=== PATIENT | female | born 1935 | race Caucasian/White ===

== ENCOUNTER 2018-06-12 11:31 | Emergency (ER) | payer MEDICARE, OTHER ==
[~2018-06-12] VITALS: Ht 165.1 cm; Wt 63.5 kg
[~2018-06-12 11:31] MED LIST: CELE200 PO; Percocet 5-3251 EACH PO; RIVASTIGMINE6 MG PO; ZESTRIL40 MG PO; [UNRECOGNIZED DRUG - CODE]; [UNRECOGNIZED DRUG - CODE]; [UNRECOGNIZED DRUG - CODE] PO
[2018-06-12 13:00] LABS: Calcium, Ionized (POC) 1.18 mmol/L (1.10-1.46); Chloride (POC) 106 mmol/L (98-108); Creatinine (POC) 0.8 mg/dL (0.6-1.0); Glucose (ISTAT POC) 84 mg/dL (70-99); Hemoglobin (POC) 11.9 g/dL (12.0-16.0); Sodium (POC) 143 mmol/L (135-148); Total CO2 (POC) 23 mmol/L (21-32)
[2018-06-12] MEDS ORDERED: LORA.5 PO (14:11)
[2018-06-12] MEDS ORDERED: EXELON1 EACH TD (14:12)
[2018-06-12] MEDS ORDERED: MEDR2.5 PO (14:13)
[2018-06-12] MEDS ORDERED: NAMENDA XR28 MG PO (14:13)
[2018-06-12] MEDS ORDERED: Inderal80 MG PO (14:14)
[2018-06-12] MEDS ORDERED: CONEST.625 PO (14:14)
== END 2018-06-12 15:05 | disposition home or self-care (01) ==
LOC: ER 11:31
PROVIDERS: Emergency Medicine
DX: S51.012A Laceration without foreign body of left elbow, initial encounter (principal); S00.12XA Contusion of left eyelid and periocular area, initial encounter; W10.9XXA Fall (on) (from) unspecified stairs and steps, initial encounter; Z79.899 Other long term (current) drug therapy
CPT/HCPCS: 70450; 80047; 85014; 90471; 90714; 93005; 93010; 99285-25

== ENCOUNTER 2019-06-05 12:21 | Emergency (ER) | payer MEDICARE, OTHER ==
[~2019-06-05] VITALS: Ht 165.1 cm; Wt 54.4 kg
[~2019-06-05 12:21] MED LIST changes: +CONEST.625 PO; +EXELON1 EACH TD; +Inderal80 MG PO; +LORA.5 PO; +MEDR2.5 PO; +NAMENDA XR28 MG PO
[2019-06-05 13:10] LABS: BASOPHILS ABSOLUTE AUTO 0.11 K/mm3 (0.00-0.23); BASOPHILS PERCENT AUTO 1 % (0-2); EOSINOPHILS ABSOLUTE AUTO 0.13 K/mm3 (0.00-0.68); EOSINOPHILS PERCENT AUTO 2 % (0-6); Hemoglobin 12.8 g/dL (11.5-16.0); IMMATURE GRAN ABSOLUTE AUTO 0.02 K/mm3 (0.00-0.10); IMMATURE GRAN PERCENT AUTO 0 % (0-1); LYMPHOCYTES ABSOLUTE AUTO 1.41 K/mm3 (0.84-5.20); LYMPHOCYTES PERCENT AUTO 16 % (21-46); MONOCYTES ABSOLUTE AUTO 0.82 K/mm3 (0.16-1.47); MONOCYTES PERCENT AUTO 9 % (4-13); Mean Corpuscular HGB 31.4 pg (26.0-34.0); Mean Corpuscular Volume 98 fL (80-100); Mean Platelet Volume 10.1 fL (9.1-12.4); NEUTROPHILS ABSOLUTE AUTO 6.46 K/mm3 (1.96-9.15); NEUTROPHILS PERCENT AUTO 72 % (41-73); Platelet Count 239 K/mm3 (150-400); RDW Coefficient Variation 12.6 % (11.7-14.2); RDW Standard Deviation 45.7 fL (35.1-46.3); Red Blood Cell Count 4.07 M/mm3 (3.80-5.20); White Blood Cell Count 8.95 K/mm3 (4.00-11.30)
[2019-06-05 13:25] LABS: Source, Urine Clean Catch
[2019-06-05 13:28] LABS: Bilirubin, Urine Neg (Neg); Blood, Urine Neg (Neg); Glucose Qualitative, Urine Neg (Neg); Ketones, Urine Neg (Neg); Leukocyte Esterase, Urine Neg (Neg); Nitrite, Urine Neg (Neg); Protein, Urine 1+ (Neg); Urobilinogen, Urine NORM (Normal)
[2019-06-05 13:35] LABS: Appearance, Urine Clear (Clear); Color, Urine Pale Yellow (P-Yellow)
[2019-06-05 14:13] LABS: Troponin I <0.015 ng/mL (0.000-0.040)
[2019-06-05 14:20] LABS: Alanine Aminotransfer (ALT/SGP 23 U/L (12-78); Albumin, Blood 3.5 g/dL (3.4-5.0); Albumin/Globulin Ratio 0.8 (0.8-1.8); Alk Phos 116 U/L (50-136); Anion Gap 8 mmol/L (6-16); Aspartate Aminotrans (AST/SGOT 25 U/L (12-37); Bilirubin, Total 0.5 mg/dL (0.1-1.0); Blood Urea Nitrogen 14 mg/dL (8-24); Bun/Creatinine Ratio 20.3 (12.0-20.0); CO2, Blood 28 mmol/L (21-32); Calcium, Blood 9.6 mg/dL (8.5-10.1); Chloride, Blood 108 mmol/L (98-108); Creatinine, Blood 0.69 mg/dL (0.40-1.00); Globulin, Blood 4.3 g/dL (2.2-4.0); Glomerular Filtration Rate >60 (60-); Glucose, Blood 116 mg/dL (70-99); Potassium, Blood 3.6 mmol/L (3.5-5.5); Sodium, Blood 144 mmol/L (136-145); Total Protein, Blood 7.8 g/dL (6.4-8.2)
[2019-06-05] MEDS ORDERED: LORA1 PO (14:26)
== END 2019-06-05 16:04 | disposition home or self-care (01) ==
LOC: ER 12:21
PROVIDERS: Physician Assistant
DX: S01.01XA Laceration without foreign body of scalp, initial encounter (principal); W01.198A Fall on same level from slipping, tripping and stumbling with subsequent striking against other object, initial encounter; Z79.899 Other long term (current) drug therapy; I10 Essential (primary) hypertension; G30.9 Alzheimer's disease, unspecified
CPT/HCPCS: 36415; 70450; 80053; 84484; 85025; 93005; 93010; 96374; 96375; 99284-25; J0360; J2060

== ENCOUNTER 2019-09-27 12:15 | Inpatient (IN) | payer MEDICARE, OTHER ==
[~2019-09-27] VITALS: Ht 165.1 cm; Wt 58.5 kg
[~2019-09-27 12:15] MED LIST changes: +LORA1 PO
[2019-09-27] MEDS ORDERED: CELECOXIB200 MG PO (12:25)
[2019-09-27] MEDS ORDERED: Sulfamethoxazo1 EAC4 PO (12:25)
[2019-09-27 13:41] LABS: BASOPHILS ABSOLUTE AUTO 0.01 K/mm3 (0.00-0.23); BASOPHILS PERCENT AUTO 0 % (0-2); EOSINOPHILS PERCENT AUTO 1 % (0-6); Hematocrit 36.6 % (33.0-51.0); Hemoglobin 11.8 g/dL (11.5-16.0); IMMATURE GRAN ABSOLUTE AUTO 0.11 K/mm3 (0.00-0.10); IMMATURE GRAN PERCENT AUTO 1 % (0-1); LYMPHOCYTES ABSOLUTE AUTO 0.06 K/mm3 (0.84-5.20); LYMPHOCYTES PERCENT AUTO 0 % (21-46); MONOCYTES ABSOLUTE AUTO 0.19 K/mm3 (0.16-1.47); MONOCYTES PERCENT AUTO 1 % (4-13); Mean Corpuscular HGB 31.8 pg (26.0-34.0); Mean Corpuscular HGB Conc 32.2 g/dL (31.5-36.5); Mean Corpuscular Volume 99 fL (80-100); Mean Platelet Volume 10.4 fL (9.1-12.4); NEUTROPHILS ABSOLUTE AUTO 15.39 K/mm3 (1.96-9.15); NEUTROPHILS PERCENT AUTO 97 % (41-73); Platelet Count 184 K/mm3 (150-400); RDW Coefficient Variation 12.9 % (11.7-14.2); RDW Standard Deviation 46.5 fL (35.1-46.3); Red Blood Cell Count 3.71 M/mm3 (3.80-5.20); White Blood Cell Count 15.86 K/mm3 (4.00-11.30)
[2019-09-27 14:02] LABS: Troponin I <0.015 ng/mL (0.000-0.040)
[2019-09-27 14:03] LABS: Alanine Aminotransfer (ALT/SGP 25 U/L (12-78); Albumin/Globulin Ratio 0.8 (0.8-1.8); Alk Phos 108 U/L (50-136); Anion Gap 6 mmol/L (6-16); Aspartate Aminotrans (AST/SGOT 33 U/L (12-37); Bilirubin, Total 0.4 mg/dL (0.1-1.0); Blood Urea Nitrogen 21 mg/dL (8-24); Bun/Creatinine Ratio 21.8 (12.0-20.0); CO2, Blood 28 mmol/L (21-32); Calcium, Blood 9.1 mg/dL (8.5-10.1); Chloride, Blood 107 mmol/L (98-108); Creatinine, Blood 0.96 mg/dL (0.40-1.00); Globulin, Blood 3.9 g/dL (2.2-4.0); Glomerular Filtration Rate 58 (60-); Glucose, Blood 122 mg/dL (70-99); Potassium, Blood 3.8 mmol/L (3.5-5.5); Sodium, Blood 141 mmol/L (136-145); Total Protein, Blood 6.9 g/dL (6.4-8.2)
[2019-09-27 14:07] LABS: Thyroid Stimulating Hormone 0.685 uIU/mL (0.360-4.800)
[2019-09-27 14:42] LABS: Source, Urine Voided
[2019-09-27 14:45] LABS: Blood, Urine 1+ (Neg); Glucose Qualitative, Urine Neg (Neg); Ketones, Urine Neg (Neg); Leukocyte Esterase, Urine 1+ (Neg); Nitrite, Urine Neg (Neg); Protein, Urine 1+ (Neg); Specific Gravity, Urine 1.015 (1.003-1.022); Urobilinogen, Urine 1+ (Normal)
[2019-09-27 15:00] LABS: Appearance, Urine Clear (Clear); Bilirubin, Urine 1+ (Neg); Color, Urine Yellow (P-Yellow)
[2019-09-27 15:01] LABS: Bacteria Mod /hpf; Mucus Light (0-Heavy); Squamous Epithelial Cells Few /hpf (Few)
[2019-09-27] MEDS ORDERED: PROPRANOLOL HCL80 MG PO (15:05)
--- NOTE | 2019-09-27 15:40 | NUR ---
RECIEVED REPORT FROM LUKASZ GARRIDO RN AT 1540. PATIENT TO BE TRANSFERED TO ROOM 349.
[2019-09-27] MEDS ORDERED: LORA.5 PO (16:18)
[2019-09-27] MEDS ORDERED: TOCO1000 PO (16:19)
--- NOTE | 2019-09-27 18:13 | NUR ---
PATIENT ARRIVED TO ROOM 349 AT 1556. ASSESSMENT, H&P AND MED REC COMPLETED WITH ASSISTANCE OF SON AND DAUGHTER IN LAW. PATIENT PULLED OUT IV THAT WAS PLACED IN THE ER. I THEN PLACED ANOTHER AND SHE REMOVED THAT ONE, DESPITE IT BEING WRAPPED WELL WITH COBAN. THIRD IV WAS PLACED AND PATIENT ALSO WAS FOUND TRYING TO REMOVED THAT IV. JOCELYN, SITE WITH CURRENTLY 2 IV SITES, WRAPPED WELL WITH COBAN.
--- NOTE | 2019-09-27 18:35 | NUR ---
SPOKE TO DR MCKEON REGARDING PATIENT PULLNG OUT IV'S, ORDER GIVEN TO PLACE WRIST RESTRAINTS. I CALLED PATIENT'S SON, ANDRADE, RIGHT AFTER TALKING TO DOCTOR MIKE AND INFORMED HIM OF THE SITUATION AND HE ADREED TO COME SIT AT THE PATIENTS BEDSIDE TO WATCH HER FROM PULLING HER IV's.
--- NOTE | 2019-09-28 03:47 | NUR ---
SHIFT SUMMARY PATIENT HAD NO ACUTE CHANGES OBSERVED. FAMILY PRESENT AT SHIFT CHANGE TO HELP MONITOR PATIENT AND KEEP HER FROM PULLING OUT IV'S. FAMILY STAYED A FEW HOURS AND LEFT FOR EVENING. AXOX 1-2 TO SELF AND FAMILY. SLOW TO RESPOND. PIV REMAINS INTACT. LR INFUSING AT 50 mL/HR. FEBRILE WITH TEMP OF 101.3 AND TYLENOL 500 MG GIVEN PER EMAR. TEMP REDUCED TO 98.5. TWO PERSON TRANSFER TO [facility] [place] W/FWW. OTHER VITALS WNL. BED ALARM ACTIVATED FOR CONFUSION. CALL LIGHT IN REACH. BED IN LOWEST POSITION. WILL CONTINUE TO MONITOR UNTIL DAY SHIFT NURSE ASSUMES CARE.
[2019-09-28 04:59] LABS: BASOPHILS ABSOLUTE AUTO 0.04 K/mm3 (0.00-0.23); BASOPHILS PERCENT AUTO 0 % (0-2); EOSINOPHILS ABSOLUTE AUTO 0.15 K/mm3 (0.00-0.68); EOSINOPHILS PERCENT AUTO 2 % (0-6); Hematocrit 36.7 % (33.0-51.0); Hemoglobin 11.8 g/dL (11.5-16.0); IMMATURE GRAN ABSOLUTE AUTO 0.12 K/mm3 (0.00-0.10); IMMATURE GRAN PERCENT AUTO 1 % (0-1); LYMPHOCYTES ABSOLUTE AUTO 0.07 K/mm3 (0.84-5.20); LYMPHOCYTES PERCENT AUTO 1 % (21-46); MONOCYTES ABSOLUTE AUTO 0.08 K/mm3 (0.16-1.47); MONOCYTES PERCENT AUTO 1 % (4-13); Mean Corpuscular HGB 30.9 pg (26.0-34.0); Mean Corpuscular HGB Conc 32.2 g/dL (31.5-36.5); Mean Platelet Volume 9.9 fL (9.1-12.4); NEUTROPHILS ABSOLUTE AUTO 9.75 K/mm3 (1.96-9.15); NEUTROPHILS PERCENT AUTO 95 % (41-73); Platelet Count 145 K/mm3 (150-400); RDW Coefficient Variation 13.2 % (11.7-14.2); RDW Standard Deviation 46.5 fL (35.1-46.3); Red Blood Cell Count 3.82 M/mm3 (3.80-5.20); White Blood Cell Count 10.21 K/mm3 (4.00-11.30)
[2019-09-28 05:11] LABS: Mean Corpuscular Volume 96 fL (80-100)
[2019-09-28 05:24] LABS: Albumin, Blood 2.4 g/dL (3.4-5.0); Calcium, Blood 8.6 mg/dL (8.5-10.1); Creatinine, Blood 1.26 mg/dL (0.40-1.00); Magnesium, Blood 1.9 mg/dL (1.6-2.4); Phosphorus, Blood 3.4 mg/dL (2.5-4.9)
[2019-09-28 05:26] LABS: Albumin/Globulin Ratio 0.7 (0.8-1.8); Bilirubin, Total 0.5 mg/dL (0.1-1.0); Globulin, Blood 3.4 g/dL (2.2-4.0); Total Protein, Blood 5.8 g/dL (6.4-8.2)
--- NOTE | 2019-09-28 16:24 | NUR ---
SHIFT SUMMARY THE PATIENT HAS HAD A GOOD DAY. VITALS HAVE BEEN STABLE. CONFUSED BUT PLEASANT WITH STAFF. DOESN'T REMEMBER HOW TO USE THE CALL LIGHT, HOWEVER CALLS OUT FOR STAFF ASSIST NEEDED. CONTINUES ON IV ABX WITHOUT S/SX OF ADVERSE REACTIONS NOTED OR REPORTED. THE PATIENT IS CURRENTLY RECLINING IN THE BED SIDE RECLINER IN HER ROOM. HER SON IS AT BEDSIDE. WILL CONTINUE TO MONITOR AND PROVIDE CARE NEEDED.
--- NOTE | 2019-09-29 05:19 | NUR ---
SHIFT SUMMARY PT PREFERS TO DC HOME WHEN STABLE FOR DC, CAREGIVER ALREADY IN PLACE FOR 40 HRS/WK. HOWEVER, FAMILY DOES AGREE TO [facility] IF PLACEMENT IS REQUIRED OR MORE HH HOURS THROUGH [facility]. PT WAS CONTINENT OF URINE THIS SHIFT TO [facility] [place]. 1-2 STANDBY ASSIST W/FWW, DEPENDING. VERY WEAK AND UNSTEADY STILL. LR IS INFUSING @ 50 ML/HR ORDERED. MEDS MAY NEED TO BE CRUSHED IN APPLESAUCE THIS PT HAD DIFFICULTY SWALLOWING HER BEDTIME PILLS FOR ME. SHE IS FORGETFUL AND DISORIENTED @ TIMES, HX: ADVANCED ALZHEIMER'S. HX: PULLING IV'S - SO WE'VE WRAPPED THEM IN EFFORT TO PRESERVE THE ACCESS. RA.
[2019-09-29 05:39] LABS: Hematocrit 34.1 % (33.0-51.0); Hemoglobin 11.2 g/dL (11.5-16.0); Mean Corpuscular HGB 31.2 pg (26.0-34.0); Mean Corpuscular HGB Conc 32.8 g/dL (31.5-36.5); Mean Corpuscular Volume 95 fL (80-100); Mean Platelet Volume 10.7 fL (9.1-12.4); Platelet Count 105 K/mm3 (150-400); RDW Coefficient Variation 13.2 % (11.7-14.2); RDW Standard Deviation 45.6 fL (35.1-46.3); Red Blood Cell Count 3.59 M/mm3 (3.80-5.20); White Blood Cell Count 6.45 K/mm3 (4.00-11.30)
[2019-09-29 05:47] LABS: Bun/Creatinine Ratio 26.3 (12.0-20.0); Calcium, Blood 8.4 mg/dL (8.5-10.1); Creatinine, Blood 1.14 mg/dL (0.40-1.00); Potassium, Blood 3.8 mmol/L (3.5-5.5)
[2019-09-29 06:05] LABS: BAND PERCENT MAN 25 % (0-8); BASOPHILS PERCENT MAN 0 % (0-2); EOSINOPHILS ABSOLUTE MAN 0.12 K/mm3 (0.00-0.68); EOSINOPHILS PERCENT MAN 2 % (0-6); LYMPHOCYTES ABSOLUTE MAN 0.19 K/mm3 (0.84-5.20); LYMPHOCYTES PERCENT MAN 3 % (21-46); MONOCYTES PERCENT MAN 0 % (4-13); NEUTROPHILS ABSOLUTE MAN 6.12 K/mm3 (1.96-9.15); SEG NEUTROPHILS PERCENT MAN 70 % (41-73); TOTAL CELLS COUNTED 100
--- NOTE | 2019-09-29 11:28 | NUR ---
DR JUDGE OFFICE NOTIFIED OF CONSULT.
--- NOTE | 2019-09-29 16:53 | NUR ---
SHIFT SUMMARY- PT A/O TO SELF ONLY. 1 ASSIST WITH FWW UP BATHROOM. PT DENIES ANY COMPLAINTS T/O THE DAY. LS CLEAR, ON RA. HRR. 1+ BLE EDEMA. DR QUIGLEY CONSULTED. POST VOID BLADDER SCAN OF 21. PT REPORTS FEELING CONSTIPATED, BOWEL CARE ORDERED. SON IN THROUGH OUT THE DAY TO CHECK ON PT, HE IS REQUESTING HE BE NOTIFIED WHEN THERAPY IS IN TO SEE PT TOMORROW SO HE CAN BE HERE. POSSIBLE DISCHARGE HOME TOMORROW WITH HOME HEALTH. NO OTHER ACUTE CHANGES THIS SHIFT.
--- NOTE | 2019-09-29 23:02 | NUR ---
LR IV FLUID INFUSION DC'D LR IV FLUID INFUSION DC'D @ 2300 HRS ORDERED. 278 ML INFUSED ON PUMP SINCE LAST CLEARED.
--- NOTE | 2019-09-30 04:33 | NUR ---
SHIFT SUMMARY 24 HR URINE PROTEIN COLLECTION HAS BEGUN. DELAYED START DUE TO POLLUTION OF SAMPLE -STOOL IN COLLECTION HAT. PT HAD MULTIPLE BM'S FIRST HALF OF SHIFT. LR IV INFUSION DC'D @ 2300 HRS ORDERED. PT IS A STANDBY W/FWW & GAITBELT TO BATHROOM. SHE DOES FEEL FREQUENT URGES TO URINATE, BUT IS NOT ALWAYS ABLE TO. SHE IS IMPULSIVE AND PLEASANTLY CONFUSED, ATTEMPTS TO GET OUT OF BED HERSELF - THEN CALLS OUT FOR ASSISTANCE WHEN LEGS ARE OVER THE SIDE OF THE BED. FOR THIS REASON I'VE REQUESTED SHE BE PUT ON VIDEO MONITORING. BED ALARM IS ON WELL. I WAS INFORMED BY DAY NURSE THAT 24 HR CAREGIVERS ARE ALREADY IN PLACE AT THE PT'S HOME. IT IS IMPORTANT FOR THIS PT'S SAFETY TO VERIFY THAT INFORMATION BEFORE DC SHE CANNOT BE LEFT ALONE. MEDS SHOULD BE CRUSHED IN PUDDING OR APPLESAUCE SHE POCKETS PILLS IN HER CHEEKS OR SPITS THEM BACK OUT. BLE EDEMA.
[2019-09-30 05:45] LABS: Hematocrit 30.6 % (33.0-51.0); Hemoglobin 9.9 g/dL (11.5-16.0); Mean Corpuscular HGB 30.6 pg (26.0-34.0); Mean Corpuscular HGB Conc 32.4 g/dL (31.5-36.5); Mean Corpuscular Volume 94 fL (80-100); Mean Platelet Volume 10.6 fL (9.1-12.4); Platelet Count 97 K/mm3 (150-400); RDW Coefficient Variation 13.1 % (11.7-14.2); RDW Standard Deviation 45.6 fL (35.1-46.3); Red Blood Cell Count 3.24 M/mm3 (3.80-5.20); White Blood Cell Count 7.25 K/mm3 (4.00-11.30)
--- NOTE | 2019-09-30 05:53 | NUR ---
VERIFIED VIDEO MONITORING CHARGE AND SOFTWARE PROGRAM MANAGER INFORMED OF MY REQUEST FOR VIDEO MONITORING. REQUEST APPROVED. I CALLED AND VERIFIED THAT THIS PT WAS VIDEO MONITORED - FAST FOOD SUPERVISOR ZACH.
[2019-09-30 06:07] LABS: BAND PERCENT MAN 2 % (0-8); BASOPHILS ABSOLUTE MAN 0.07 K/mm3 (0.00-0.23); BASOPHILS PERCENT MAN 1 % (0-2); EOSINOPHILS ABSOLUTE MAN 0.29 K/mm3 (0.00-0.68); EOSINOPHILS PERCENT MAN 4 % (0-6); LYMPHOCYTES ABSOLUTE MAN 0.43 K/mm3 (0.84-5.20); LYMPHOCYTES PERCENT MAN 6 % (21-46); MONOCYTES ABSOLUTE MAN 0.21 K/mm3 (0.16-1.47); MONOCYTES PERCENT MAN 3 % (4-13); NEUTROPHILS ABSOLUTE MAN 6.23 K/mm3 (1.96-9.15); SEG NEUTROPHILS PERCENT MAN 84 % (41-73); TOTAL CELLS COUNTED 100
[2019-09-30 06:18] LABS: Albumin, Blood 2.1 g/dL (3.4-5.0); Anion Gap 6 mmol/L (6-16); Blood Urea Nitrogen 29 mg/dL (8-24); Bun/Creatinine Ratio 32.6 (12.0-20.0); CO2, Blood 25 mmol/L (21-32); Calcium, Blood 8.6 mg/dL (8.5-10.1); Chloride, Blood 112 mmol/L (98-108); Creatinine, Blood 0.89 mg/dL (0.40-1.00); Glomerular Filtration Rate >60 (60-); Glucose, Blood 87 mg/dL (70-99); Phosphorus, Blood 2.2 mg/dL (2.5-4.9); Potassium, Blood 3.6 mmol/L (3.5-5.5); Sodium, Blood 143 mmol/L (136-145)
--- NOTE | 2019-09-30 13:01 | NUR ---
OCCUPATIONAL THERAPY IN TO WORK WITH PT, SON AT BEDSIDE. DR MCKEON TO COME SHORTLY TO TALK WITH SON. [facility].
--- NOTE | 2019-09-30 15:25 | NUR ---
Patient is sitting on a chair and alert. Patient is kind and thoughtful. Patient tells me about her family, her love of traveling and about her belief in God. Patient states that she couldn't think of being any better than how she is right now and hopes that others in the hospital can feel the same way. I listen empathically, reinforce helpful attitudes and practices, and provide companionship and prayer. Patient responds well and voices appreciation for the visit.
--- NOTE | 2019-09-30 16:52 | NUR ---
SHIFT SUMMARY- PT A/O TO SELF AND FAMILY. CONFUSED BUT EASILY REDIRECTED. PT DENIES ANY COMPLAINTS T/O THE DAY. LS CLEAR, ON RA. HRR. 1+ BLE EDEMA WITH DARA HOSE IN PLACE. 1 ASSIST UP TO BATHROOM WITH FWW. 24 URINE IN PROCESS. PT WITH POOR ORAL INTAKE. NO OTHER ACUTE CHANGES THIS SHIFT. POSS D/C HOME WITH HH VS SNF.
--- NOTE | 2019-09-30 18:59 | NUR ---
CONFIRMED VIDEO MONITORING CONFIRMED WITH [facility] THAT THIS PT IS BEING MONITORED VIA [facility].
--- NOTE | 2019-10-01 04:06 | NUR ---
SHIFT SUMMARY VIDEO MONITORING IN PLACE. PT DOES CONTINUE TO TRY TO GET OUT OF BED ON HER OWN AND THEN CALLS OUT. BED ALARM IS ON. 24 HOUR URINE PROTEIN IS COLLECTED AND SUBMITTED TO LAB. BASELINE TREMORS AND ADVANCED ALZHEIMERS. RA. PT DENIES DISCOMFORT. PT EXPERIENCES FREQUENT URGES TO URINATE W/ SMALL AMOUNT OF OUTPUT. I WAS GIVEN IN REPORT THAT SHE DOES NOT INGEST A SIGNIFICANT AMOUNT OF FOOD OR FLUIDS. PLAN IS FOR PT TO GO HOME W/HOME CAREGIVERS.
[2019-10-01 04:15] LABS: Protein, Urine Quantitative 67.3 mg/dL (0.0-11.9)
[2019-10-01 05:25] LABS: BASOPHILS ABSOLUTE AUTO 0.03 K/mm3 (0.00-0.23); BASOPHILS PERCENT AUTO 0 % (0-2); EOSINOPHILS ABSOLUTE AUTO 0.28 K/mm3 (0.00-0.68); EOSINOPHILS PERCENT AUTO 4 % (0-6); Hematocrit 30.8 % (33.0-51.0); Hemoglobin 9.9 g/dL (11.5-16.0); IMMATURE GRAN ABSOLUTE AUTO 0.04 K/mm3 (0.00-0.10); IMMATURE GRAN PERCENT AUTO 1 % (0-1); LYMPHOCYTES PERCENT AUTO 15 % (21-46); MONOCYTES ABSOLUTE AUTO 0.81 K/mm3 (0.16-1.47); MONOCYTES PERCENT AUTO 12 % (4-13); Mean Corpuscular HGB 30.8 pg (26.0-34.0); Mean Corpuscular HGB Conc 32.1 g/dL (31.5-36.5); Mean Corpuscular Volume 96 fL (80-100); Mean Platelet Volume 10.9 fL (9.1-12.4); NEUTROPHILS ABSOLUTE AUTO 4.76 K/mm3 (1.96-9.15); NEUTROPHILS PERCENT AUTO 69 % (41-73); Platelet Count 95 K/mm3 (150-400); RDW Coefficient Variation 13.2 % (11.7-14.2); RDW Standard Deviation 47.1 fL (35.1-46.3); Red Blood Cell Count 3.21 M/mm3 (3.80-5.20); White Blood Cell Count 6.92 K/mm3 (4.00-11.30)
[2019-10-01 05:53] LABS: Magnesium, Blood 1.9 mg/dL (1.6-2.4)
[2019-10-01 05:54] LABS: Percent Saturation 18.9 % (15.0-50.0)
[2019-10-01 06:21] LABS: Anion Gap 5 mmol/L (6-16); Blood Urea Nitrogen 25 mg/dL (8-24); Bun/Creatinine Ratio 34.8 (12.0-20.0); CO2, Blood 28 mmol/L (21-32); Calcium, Blood 8.6 mg/dL (8.5-10.1); Chloride, Blood 111 mmol/L (98-108); Creatinine, Blood 0.72 mg/dL (0.40-1.00); Glomerular Filtration Rate >60 (60-); Glucose, Blood 86 mg/dL (70-99); Potassium, Blood 3.6 mmol/L (3.5-5.5); Sodium, Blood 144 mmol/L (136-145)
[2019-10-01 14:07] LABS: HEPARIN INDUCED PLATELET AB 0.134 OD (0.000-0.400)
[2019-10-01] MEDS ORDERED: Prinivil10 MG PO (15:03)
[2019-10-01] MEDS ORDERED: AMLO10 PO (15:04)
--- NOTE | 2019-10-01 17:56 | NUR ---
1630 PATIENT TO DISCHARGE HOME WITH FAMILY ON . THIS NURSE WENT OVER DISCHARGE PAPERS WITH FAMILY AND EDUCATED THEM REGARDING MEDS . FAMILY ENCOURAGED TO FOLLOW UP WITH PCP DOCTOR (SCAR) WHO ARE TO CALL FAMILY ON FRIDAY TO SET UP APPOINTMENT. MEDS FAXED TO [facility] PER FAMILY REQUEST. IVS REMOVED , NO SS OF INFECTION NOTED. PATIENT TAKEN BY WHEELCHAIR TRANSPORT HOME.
== END 2019-10-01 16:50 | disposition home health service (06) | DRG 603 ==
LOC: ER 12:15 → MEDS 12:16 → ER 14:55 → MEDS 14:55 → ENPENDDIS 10-01 14:55 → MEDS 10-01 16:50
PROVIDERS: Emergency Medicine; Internal Medicine Nephrology; ADMIT Hospitalist
DX: L03.031 Cellulitis of right toe (principal); N17.9 Acute kidney failure, unspecified; M50.30 Other cervical disc degeneration, unspecified cervical region; Z87.891 Personal history of nicotine dependence; G30.9 Alzheimer's disease, unspecified; W18.30XA Fall on same level, unspecified, initial encounter; Y92.9 Unspecified place or not applicable; I10 Essential (primary) hypertension; D69.6 Thrombocytopenia, unspecified; D63.1 Anemia in chronic kidney disease; I12.9 Hypertensive chronic kidney disease with stage 1 through stage 4 chronic kidney disease, or unspecified chronic kidney disease; E83.39 Other disorders of phosphorus metabolism; E86.1 Hypovolemia
CPT/HCPCS: 36415; 70450; 71045; 76770; 80048; 80053; 80069; 81001; 81050; 82607; 82728; 82746; 83540; 83550; 83735; 83880; 84100; 84156; 84443; 84484; 85014; 85018; 85025; 86022; 87086; 93005; 93010; 96361; 96365; 96366; 96372; 97110; 97116; 97162; 97165; 97530; 97535; 99285-25; G0378; J0696; J1650; J7050; J7060; J7120; P9612

== ENCOUNTER 2019-12-01 00:18 | Day surgery (SDC) | payer MEDICARE, OTHER ==
[~2019-12-01 00:18] MED LIST changes: +AMLO10 PO; +CELECOXIB200 MG PO; +PROPRANOLOL HCL80 MG PO; +Prinivil10 MG PO; +Sulfamethoxazo1 EAC4 PO; +TOCO1000 PO
== END 2019-12-01 22:57 | disposition home or self-care (01) ==
LOC: WOUND 00:18
DX: E11.621 Type 2 diabetes mellitus with foot ulcer (principal); E78.00 Pure hypercholesterolemia, unspecified; I10 Essential (primary) hypertension; L97.909 Non-pressure chronic ulcer of unspecified part of unspecified lower leg with unspecified severity; G30.9 Alzheimer's disease, unspecified; F02.80 Dementia in other diseases classified elsewhere, unspecified severity, without behavioral disturbance, psychotic disturbance, mood disturbance, and anxiety; E66.3 Overweight; S91.104A Unspecified open wound of right lesser toe(s) without damage to nail, initial encounter; L89.152 Pressure ulcer of sacral region, stage 2; Z68.1 Body mass index [BMI] 19.9 or less, adult; Z79.899 Other long term (current) drug therapy
CPT/HCPCS: G0463

== ENCOUNTER 2020-10-10 16:30 | Emergency (ER) | payer MEDICARE, OTHER ==
[~2020-10-10] VITALS: Ht 162.6 cm; Wt 51.7 kg
[2020-10-10] MEDS ORDERED: ACET325 PO (16:51)
[2020-10-10] MEDS ORDERED: DRON5 PO (16:52)
[2020-10-10] MEDS ORDERED: DOCU100 PO (16:52)
[2020-10-10] MEDS ORDERED: FURO20 PO (16:53)
[2020-10-10] MEDS ORDERED: MEGE40T PO (16:54)
[2020-10-10] MEDS ORDERED: QUET25 PO (16:55)
[2020-10-10] MEDS ORDERED: POTA8 PO (16:55)
[2020-10-10] MEDS ORDERED: METAMUCIL POWD575 GM PO (16:55)
== END 2020-10-10 20:13 | disposition home or self-care (01) ==
LOC: ER 16:30
DX: S09.90XA Unspecified injury of head, initial encounter (principal); S51.811A Laceration without foreign body of right forearm, initial encounter; I10 Essential (primary) hypertension; Z79.899 Other long term (current) drug therapy; Z87.891 Personal history of nicotine dependence; W18.30XA Fall on same level, unspecified, initial encounter
CPT/HCPCS: 70450; 93005; 93010; 99284-25

== ENCOUNTER 2020-10-14 21:02 | Emergency (ER) | payer MEDICARE, OTHER ==
[~2020-10-14] VITALS: Ht 162.6 cm; Wt 52.1 kg
[~2020-10-14 21:02] MED LIST changes: +ACET325 PO; +DOCU100 PO; +DRON5 PO; +FURO20 PO; +MEGE40T PO; +METAMUCIL POWD575 GM PO; +POTA8 PO; +QUET25 PO
[2020-10-14 22:35] LABS: Source, Urine Catheter
[2020-10-14 22:44] LABS: Bilirubin, Urine Neg (Neg); Blood, Urine 1+ (Neg); Glucose Qualitative, Urine Neg (Neg); Ketones, Urine Neg (Neg); Leukocyte Esterase, Urine 3+ (Neg); Nitrite, Urine Neg (Neg); Protein, Urine 1+ (Neg); Urobilinogen, Urine NORM (Normal)
[2020-10-14 22:46] LABS: Appearance, Urine Clear (Clear); Color, Urine Yellow (P-Yellow)
[2020-10-14 22:47] LABS: Bacteria Many /hpf; Hyaline Casts 0-2 /lpf (0-2); Red Blood Cells, Urine 0-2 /hpf (0-2); Squamous Epithelial Cells Few /hpf (Few)
[2020-10-14] MEDS ORDERED: KEFLEX500 MG PO (23:25)
== END 2020-10-14 23:55 | disposition home or self-care (01) ==
LOC: ER 21:02
PROVIDERS: Emergency Medicine
DX: N39.0 Urinary tract infection, site not specified (principal); G30.9 Alzheimer's disease, unspecified; F02.80 Dementia in other diseases classified elsewhere, unspecified severity, without behavioral disturbance, psychotic disturbance, mood disturbance, and anxiety; I10 Essential (primary) hypertension; Z79.899 Other long term (current) drug therapy
CPT/HCPCS: 70450; 81001; 87077; 87086; 87186; 99285-25; A9270-GY

== ENCOUNTER 2020-10-16 18:58 | Emergency (ER) | payer MEDICARE, OTHER ==
[~2020-10-16] VITALS: Ht 162.6 cm; Wt 53.5 kg
[~2020-10-16 18:58] MED LIST changes: +KEFLEX500 MG PO
== END 2020-10-16 22:24 | disposition home or self-care (01) ==
LOC: ER 18:58
DX: Z00.00 Encounter for general adult medical examination without abnormal findings (principal); I10 Essential (primary) hypertension; G30.9 Alzheimer's disease, unspecified; F02.80 Dementia in other diseases classified elsewhere, unspecified severity, without behavioral disturbance, psychotic disturbance, mood disturbance, and anxiety; Z79.899 Other long term (current) drug therapy
CPT/HCPCS: 99283

== ENCOUNTER 2020-11-10 11:58 | Emergency (ER) | payer MEDICARE, OTHER ==
[~2020-11-10] VITALS: Ht 167.6 cm; Wt 59.0 kg
[2020-11-10 13:20] LABS: Source, Urine Clean Catch
[2020-11-10 13:26] LABS: Appearance, Urine Clear (Clear); Bilirubin, Urine Neg (Neg); Blood, Urine Neg (Neg); Color, Urine Yellow (P-Yellow); Glucose Qualitative, Urine Neg (Neg); Ketones, Urine Neg (Neg); Leukocyte Esterase, Urine Neg (Neg); Nitrite, Urine Neg (Neg); Protein, Urine Neg (Neg); Urobilinogen, Urine NORM (Normal)
== END 2020-11-10 14:17 | disposition home or self-care (01) ==
LOC: ER 11:58
PROVIDERS: Emergency Medicine
DX: S00.03XA Contusion of scalp, initial encounter (principal); I10 Essential (primary) hypertension; G30.9 Alzheimer's disease, unspecified; F02.80 Dementia in other diseases classified elsewhere, unspecified severity, without behavioral disturbance, psychotic disturbance, mood disturbance, and anxiety; Z79.899 Other long term (current) drug therapy; Z91.81 History of falling; W18.30XA Fall on same level, unspecified, initial encounter; Y92.122 Bedroom in nursing home as the place of occurrence of the external cause
CPT/HCPCS: 81003; 99284; A9270

== ENCOUNTER → 2020-11-22 | Outpatient (CLI) | payer MEDICARE, OTHER ==
[2020-11-22 17:34] LABS: Source, Urine Clean Catch
[2020-11-22 18:57] LABS: Bilirubin, Urine Neg (Neg); Blood, Urine 2+ (Neg); Glucose Qualitative, Urine Neg (Neg); Ketones, Urine Neg (Neg); Leukocyte Esterase, Urine 3+ (Neg); Nitrite, Urine Neg (Neg); Protein, Urine 2+ (Neg); Specific Gravity, Urine 1.015 (1.003-1.022); Urobilinogen, Urine NORM (Normal)
[2020-11-22 19:06] LABS: Appearance, Urine Cloudy (Clear); Color, Urine Yellow (P-Yellow)
[2020-11-22 19:08] LABS: White Blood Cells, Urine 25-50 /hpf (0-5)
[2020-11-22 19:09] LABS: Bacteria Many /hpf; Hyaline Casts 0-2 /lpf (0-2); Squamous Epithelial Cells Many /hpf (Few)
== END | disposition home or self-care (01) ==
LOC: LAB SHORT 15:00 → PLD 15:00
PROVIDERS: Physician Assistant
DX: N39.0 Urinary tract infection, site not specified (principal); N18.30 Chronic kidney disease, stage 3 unspecified; D63.1 Anemia in chronic kidney disease
CPT/HCPCS: 81001; 87086; 87147

== ENCOUNTER → 2021-01-02 | Outpatient (CLI) | payer MEDICARE, OTHER ==
[2021-01-02 12:23] LABS: Source, Urine Clean Catch
[2021-01-02 13:18] LABS: Bilirubin, Urine Neg (Neg); Blood, Urine Neg (Neg); Glucose Qualitative, Urine Neg (Neg); Ketones, Urine Neg (Neg); Leukocyte Esterase, Urine Neg (Neg); Nitrite, Urine Neg (Neg); Protein, Urine Neg (Neg); Urobilinogen, Urine NORM (Normal)
[2021-01-02 13:42] LABS: Appearance, Urine Clear (Clear); Color, Urine Pale Yellow (P-Yellow)
== END | disposition home or self-care (01) ==
LOC: PLD 10:51 → LAB SHORT 10:51
PROVIDERS: Physician Assistant
DX: N39.0 Urinary tract infection, site not specified (principal)
CPT/HCPCS: 81003

== ENCOUNTER → 2021-01-18 | Outpatient (CLI) | payer MEDICARE, OTHER ==
[2021-01-19 15:40] LABS: Source, Urine Clean Catch
[2021-01-19 16:22] LABS: Appearance, Urine Clear (Clear); Bilirubin, Urine Neg (Neg); Blood, Urine Neg (Neg); Color, Urine Yellow (P-Yellow); Glucose Qualitative, Urine Neg (Neg); Ketones, Urine Neg (Neg); Leukocyte Esterase, Urine Neg (Neg); Nitrite, Urine Neg (Neg); Protein, Urine Neg (Neg); Specific Gravity, Urine 1.005 (1.003-1.022); Urobilinogen, Urine NORM (Normal)
== END | disposition home or self-care (01) ==
LOC: LAB 07:00 → LAB SHORT 07:00
PROVIDERS: Physician Assistant
DX: I12.9 Hypertensive chronic kidney disease with stage 1 through stage 4 chronic kidney disease, or unspecified chronic kidney disease (principal); E11.22 Type 2 diabetes mellitus with diabetic chronic kidney disease; N18.9 Chronic kidney disease, unspecified; M19.90 Unspecified osteoarthritis, unspecified site; E78.5 Hyperlipidemia, unspecified; C76.0 Malignant neoplasm of head, face and neck; G30.8 Other Alzheimer's disease; F02.80 Dementia in other diseases classified elsewhere, unspecified severity, without behavioral disturbance, psychotic disturbance, mood disturbance, and anxiety
CPT/HCPCS: 81003

== ENCOUNTER → 2021-05-09 | Outpatient (CLI) | payer MEDICARE, OTHER | END | disposition home or self-care (01) | LOC: LAB SHORT 14:05 | DX: N39.0 Urinary tract infection, site not specified (principal) ==

== ENCOUNTER 2021-05-11 21:11 | Emergency (ER) | payer MEDICARE, OTHER ==
[~2021-05-11] VITALS: Ht 157.5 cm; Wt 43.1 kg
[2021-05-11 22:00] LABS: Calcium, Ionized (POC) 1.25 mmol/L (1.10-1.46); Chloride (POC) 103 mmol/L (98-108); Creatinine (POC) 1.9 mg/dL (0.6-1.0); Glucose (ISTAT POC) 113 mg/dL (70-99); Hemoglobin (POC) 13.3 g/dL (12.0-16.0); Sodium (POC) 141 mmol/L (135-148); Total CO2 (POC) 24 mmol/L (21-32)
== END 2021-05-11 23:40 | disposition home or self-care (01) ==
LOC: ER 21:11
PROVIDERS: Emergency Medicine
DX: R55 Syncope and collapse (principal); I10 Essential (primary) hypertension; Z79.899 Other long term (current) drug therapy
CPT/HCPCS: 80047; 85014; 93005; 93010; 99284-25

== ENCOUNTER → 2021-05-13 | Outpatient (CLI) | payer MEDICARE, OTHER ==
[2021-05-13 16:04] LABS: Hematocrit 33.8 % (33.0-51.0); Mean Corpuscular HGB 30.1 pg (26.0-34.0); Mean Corpuscular HGB Conc 32.5 g/dL (31.5-36.5); Mean Corpuscular Volume 92 fL (80-100); Mean Platelet Volume 10.2 fL (9.1-12.4); Platelet Count 145 K/mm3 (150-400); RDW Coefficient Variation 15.8 % (11.7-14.2); RDW Standard Deviation 53.1 fL (35.1-46.3); Red Blood Cell Count 3.66 M/mm3 (3.80-5.20); White Blood Cell Count 9.39 K/mm3 (4.00-11.30)
[2021-05-13 16:39] LABS: Albumin, Blood 2.5 g/dL (3.4-5.0); Albumin/Globulin Ratio 0.8 (0.8-1.8); Bilirubin, Total 0.3 mg/dL (0.1-1.0); Bun/Creatinine Ratio 17.2 (12.0-20.0); Calcium, Blood 7.7 mg/dL (8.5-10.1); Creatinine, Blood 2.9 mg/dL (0.40-1.00); Globulin, Blood 3.3 g/dL (2.2-4.0); Potassium, Blood 5.1 mmol/L (3.5-5.5); Total Protein, Blood 5.8 g/dL (6.4-8.2)
[2021-05-13 17:22] LABS: BAND PERCENT MAN 19 % (0-8); BASOPHILS PERCENT MAN 0 % (0-2); EOSINOPHILS ABSOLUTE MAN 0.75 K/mm3 (0.00-0.68); EOSINOPHILS PERCENT MAN 8 % (0-6); LYMPHOCYTES ABSOLUTE MAN 0.18 K/mm3 (0.84-5.20); LYMPHOCYTES PERCENT MAN 2 % (21-46); MONOCYTES ABSOLUTE MAN 0.09 K/mm3 (0.16-1.47); MONOCYTES PERCENT MAN 1 % (4-13); NEUTROPHILS ABSOLUTE MAN 8.35 K/mm3 (1.96-9.15); SEG NEUTROPHILS PERCENT MAN 70 % (41-73); TOTAL CELLS COUNTED 100
== END | disposition home or self-care (01) ==
LOC: LAB 15:57 → LAB SHORT 15:57
PROVIDERS: Physician Assistant
DX: E86.0 Dehydration (principal)
CPT/HCPCS: 80053; 85025

== ENCOUNTER → 2021-05-14 | Outpatient (CLI) | payer MEDICARE, OTHER ==
[2021-05-14 14:17] LABS: Hematocrit 34.9 % (33.0-51.0); Hemoglobin 11.5 g/dL (11.5-16.0); Mean Corpuscular Volume 91 fL (80-100); RDW Coefficient Variation 16.1 % (11.7-14.2); RDW Standard Deviation 53.7 fL (35.1-46.3); Red Blood Cell Count 3.83 M/mm3 (3.80-5.20); White Blood Cell Count 7.64 K/mm3 (4.00-11.30)
[2021-05-14 14:24] LABS: Calcium, Blood 8.2 mg/dL (8.5-10.1); Creatinine, Blood 2.48 mg/dL (0.40-1.00); Potassium, Blood 4.9 mmol/L (3.5-5.5)
[2021-05-14 14:28] LABS: Mean Platelet Volume 10.2 fL (9.1-12.4); Platelet Count 131 K/mm3 (150-400)
[2021-05-14 14:31] LABS: BAND PERCENT MAN 27 % (0-8); BASOPHILS PERCENT MAN 0 % (0-2); EOSINOPHILS ABSOLUTE MAN 0.45 K/mm3 (0.00-0.68); EOSINOPHILS PERCENT MAN 6 % (0-6); LYMPHOCYTES ABSOLUTE MAN 0.61 K/mm3 (0.84-5.20); LYMPHOCYTES PERCENT MAN 8 % (21-46); MONOCYTES ABSOLUTE MAN 0.22 K/mm3 (0.16-1.47); MONOCYTES PERCENT MAN 3 % (4-13); NEUTROPHILS ABSOLUTE MAN 6.34 K/mm3 (1.96-9.15); SEG NEUTROPHILS PERCENT MAN 56 % (41-73); TOTAL CELLS COUNTED 100
== END | disposition home or self-care (01) ==
LOC: LAB 14:12 → LAB SHORT 14:12
PROVIDERS: Physician Assistant Surgical
DX: N39.0 Urinary tract infection, site not specified (principal)
CPT/HCPCS: 80048; 85025

== ENCOUNTER → 2021-05-15 | Outpatient (CLI) | payer MEDICARE, OTHER ==
[2021-05-15 12:16] LABS: Bun/Creatinine Ratio 23.2 (12.0-20.0); Calcium, Blood 8.7 mg/dL (8.5-10.1); Creatinine, Blood 1.94 mg/dL (0.40-1.00); Potassium, Blood 4.4 mmol/L (3.5-5.5)
== END | disposition home or self-care (01) ==
LOC: LAB 11:35 → LAB SHORT 11:35
PROVIDERS: Family Medicine
DX: N39.0 Urinary tract infection, site not specified (principal)
CPT/HCPCS: 80048

== ENCOUNTER → 2021-05-23 | Outpatient (CLI) | payer MEDICARE, OTHER ==
[2021-05-23 13:39] LABS: Source, Urine Clean Catch
[2021-05-23 14:53] LABS: Appearance, Urine Hazy (Clear); Bilirubin, Urine Neg (Neg); Blood, Urine Neg (Neg); Color, Urine Yellow (P-Yellow); Glucose Qualitative, Urine Neg (Neg); Ketones, Urine Neg (Neg); Leukocyte Esterase, Urine 1+ (Neg); Nitrite, Urine Neg (Neg); Protein, Urine 1+ (Neg); Urobilinogen, Urine NORM (Normal)
[2021-05-23 15:16] LABS: Hyaline Casts Rare /lpf (0-2)
[2021-05-23 15:18] LABS: Bacteria Mod /hpf; Red Blood Cells, Urine Not Seen /hpf (0-2); Squamous Epithelial Cells Mod /hpf (Few)
[2021-05-23 15:19] LABS: Transitional Epithelial Cells Rare /hpf (0-Rare)
== END | disposition home or self-care (01) ==
LOC: LAB SHORT 13:35 → LAB 13:35
PROVIDERS: Physician Assistant
DX: N39.0 Urinary tract infection, site not specified (principal)
CPT/HCPCS: 81001; 87086

== ENCOUNTER 2021-08-19 07:59 | Emergency (ER) | payer MEDICARE, OTHER ==
[~2021-08-19] VITALS: Ht 157.5 cm; Wt 45.5 kg
[2021-08-19 08:50] LABS: BASOPHILS ABSOLUTE AUTO 0.09 K/mm3 (0.00-0.23); BASOPHILS PERCENT AUTO 2 % (0-2); EOSINOPHILS ABSOLUTE AUTO 0.17 K/mm3 (0.00-0.68); EOSINOPHILS PERCENT AUTO 3 % (0-6); Hematocrit 34.3 % (33.0-51.0); Hemoglobin 10.8 g/dL (11.5-16.0); IMMATURE GRAN ABSOLUTE AUTO 0.01 K/mm3 (0.00-0.10); IMMATURE GRAN PERCENT AUTO 0 % (0-1); LYMPHOCYTES PERCENT AUTO 31 % (21-46); MONOCYTES ABSOLUTE AUTO 0.53 K/mm3 (0.16-1.47); MONOCYTES PERCENT AUTO 10 % (4-13); Mean Corpuscular HGB 31.6 pg (26.0-34.0); Mean Corpuscular HGB Conc 31.5 g/dL (31.5-36.5); Mean Corpuscular Volume 100 fL (80-100); Mean Platelet Volume 9.5 fL (9.1-12.4); NEUTROPHILS ABSOLUTE AUTO 3.06 K/mm3 (1.96-9.15); NEUTROPHILS PERCENT AUTO 55 % (41-73); Platelet Count 233 K/mm3 (150-400); RDW Coefficient Variation 13.8 % (11.7-14.2); Red Blood Cell Count 3.42 M/mm3 (3.80-5.20); White Blood Cell Count 5.56 K/mm3 (4.00-11.30)
[2021-08-19 09:07] LABS: Bun/Creatinine Ratio 24.1 (12.0-20.0); Calcium, Blood 9.3 mg/dL (8.5-10.1); Creatinine, Blood 0.91 mg/dL (0.40-1.00); Potassium, Blood 3.9 mmol/L (3.5-5.5)
[2021-08-19] MEDS ORDERED: XARELTO15 MG PO (09:59)
== END 2021-08-19 11:19 | disposition home or self-care (01) ==
LOC: ER 07:59
PROVIDERS: Emergency Medicine
DX: I82.811 Embolism and thrombosis of superficial veins of right lower extremity (principal); I10 Essential (primary) hypertension; Z79.899 Other long term (current) drug therapy
CPT/HCPCS: 36415; 80048; 85025; 93971; 99284-25; A9270

== ENCOUNTER → 2021-09-28 | Outpatient (CLI) | payer MEDICARE, OTHER ==
[~2021-09-28] MED LIST changes: +XARELTO15 MG PO
[2021-09-29 15:22] LABS: Source, Urine Clean Catch
[2021-09-29 15:36] LABS: Appearance, Urine Clear (Clear); Bilirubin, Urine Neg (Neg); Blood, Urine Neg (Neg); Color, Urine Yellow (P-Yellow); Glucose Qualitative, Urine Neg (Neg); Ketones, Urine Neg (Neg); Leukocyte Esterase, Urine Neg (Neg); Nitrite, Urine Neg (Neg); Protein, Urine Neg (Neg); Urobilinogen, Urine NORM (Normal)
== END | disposition home or self-care (01) ==
LOC: LAB SHORT 12:40 → LAB 12:40
PROVIDERS: Physician Assistant
DX: N39.0 Urinary tract infection, site not specified (principal); R00.1 Bradycardia, unspecified
CPT/HCPCS: 81003

== ENCOUNTER → 2022-07-31 | Outpatient (CLI) | payer MEDICARE, OTHER ==
[~2022-07-31] MED LIST changes: +AMOCLA500 PO; -EXELON1 EACH TD; +FERSU300 PO; +GABA100 PO; +Inderal 20 mg T20 MG PO; +LOPE2C PO; +OXYB5 PO; -PROPRANOLOL HCL80 MG PO; +RIVASTIGMINE1 EAC4 TOP
[2022-07-31 18:48] LABS: Albumin, Blood 1.9 g/dL (3.4-5.0); Albumin/Globulin Ratio 0.6 (0.8-1.8); Bilirubin, Total 0.3 mg/dL (0.1-1.0); Bun/Creatinine Ratio 31.9 (12.0-20.0); Creatinine, Blood 1.19 mg/dL (0.40-1.00); Globulin, Blood 3.1 g/dL (2.2-4.0); Phosphorus, Blood 2.7 mg/dL (2.5-4.9); Potassium, Blood 4.5 mmol/L (3.5-5.5)
== END | disposition home or self-care (01) ==
LOC: LAB 12:59 → LAB SHORT 12:59
PROVIDERS: Internal Medicine Hematology & Oncology
DX: N18.4 Chronic kidney disease, stage 4 (severe) (principal)
CPT/HCPCS: 80053; 84100

== ENCOUNTER → 2022-10-14 | Outpatient (CLI) | payer MEDICARE, OTHER ==
[2022-10-14 15:19] LABS: Source, Urine Clean Catch
[2022-10-14 15:40] LABS: Appearance, Urine Cloudy (Clear); Bilirubin, Urine Neg (Neg); Blood, Urine 2+ (Neg); Color, Urine Yellow (P-Yellow); Glucose Qualitative, Urine Neg (Neg); Ketones, Urine Neg (Neg); Leukocyte Esterase, Urine 2+ (Neg); Nitrite, Urine Neg (Neg); Protein, Urine 3+ (Neg); Specific Gravity, Urine 1.015 (1.003-1.022); Urobilinogen, Urine NORM (Normal)
[2022-10-14 15:51] LABS: Bacteria Many /hpf; Squamous Epithelial Cells Many /hpf (Few)
== END | disposition home or self-care (01) ==
LOC: LAB SHORT 13:00 → LAB 13:00
PROVIDERS: Physician Assistant
DX: N39.0 Urinary tract infection, site not specified (principal)
CPT/HCPCS: 81001; 87077; 87086; 87186

== ENCOUNTER → 2022-11-05 | Outpatient (CLI) | payer MEDICARE, OTHER | LOC: LAB SHORT 17:04 → LAB 17:04 | DX: R33.9 Retention of urine, unspecified (principal) | CPT/HCPCS: 87070; 87077; 87186; 87205 ==